=== PATIENT | female | born 1980 | race Caucasian/White ===

== ENCOUNTER 2018-03-22 11:32 | Outpatient (CLI) | END 2018-03-22 13:44 | disposition home or self-care (01) ==

== ENCOUNTER 2018-04-10 10:41 | Outpatient (CLI) | END 2018-04-10 13:25 | disposition home or self-care (01) ==

== ENCOUNTER 2018-04-12 04:50 | Inpatient (IN) | END 2018-04-14 18:45 | disposition home or self-care (01) | DRG 775 ==